=== PATIENT | female | born 1990 | race Caucasian/White ===

== ENCOUNTER 2016-12-18 08:13 | Emergency (ER) | payer BC, MEDICAID ==
[~2016-12-18] VITALS: Ht 162.6 cm; Wt 47.6 kg
--- NOTE | 2016-12-18 08:32 | NUR ---
PT IS IN ROOM [address]A. DR GRESHAM EVALUATED THE PT.
[2016-12-18] MEDS ORDERED: IPRATROPIUM BROMIDE 0.5 MG/2.5 ML NEBU NEB ONE (08:45)
[2016-12-18] MEDS ORDERED: ALBUTEROL SULFATE 2.5 MG/3 ML NEBU NEB ONE (08:45)
[2016-12-18] MEDS ORDERED: ALBUTEROL SULFATE 2.5 MG/3 ML NEBU ONE (09:05)
[2016-12-18] MEDS ORDERED: IPRATROPIUM BROMIDE 0.5 MG/2.5 ML NEBU ONE (09:05)
--- NOTE | 2016-12-18 09:42 | NUR ---
PT WAS D/C TO HOME. D/C INSTRUCTIONS GIVEN TO THE PT.
[2016-12-18 09:44] VITALS: BP 128/77
== END 2016-12-18 09:45 | disposition home or self-care (01) ==
LOC: ER 08:13
DX: J40 Bronchitis, not specified as acute or chronic (principal); Z88.6 Allergy status to analgesic agent; Z88.8 Allergy status to other drugs, medicaments and biological substances
CPT/HCPCS: A4663; J3590